=== PATIENT | male | born 1950 | race Caucasian/White ===

== ENCOUNTER → 2017-04-30 | Outpatient (CLI) | payer OTHER ==
--- NOTE | ~2017-04-30 | CT2 ---
[facility] A Service of [facility] RADIOLOGY TEXT RESULTS PATIENT: ROLY QUINTANILLA LOCATION: [facility] : 50 UNIT #: [id number] AGE: [address]: Damián Handley MD SEX: M ORDER DR: [id number] [facility]. [place], [place] [address] [id number] O MR#: [id number] Acc #: [id number] NAME: ROLY QUINTANILLA : 1950 SEX: M STUDY DATE/TIME: 04/30/2017 10:25 UNIT: [facility] ROOM: STUDY DESCRIPTION: CT Abd and Pelv W Cont Attending Physician: Damián Handley M.D. Referring Physician: Damián Handley M.D. Ordering Physician: Damián Handley M.D. Primary Care Physician: Damián Handley M.D. MEDICAL IMAGING REPORT This report is preliminary unless electronic signature is present EXAM CT abdomen and pelvis with contrast INDICATIONS Unexplained weight loss and generalized abdominal pain for the past 3 months. PROCEDURE Contrast-enhanced CT of the abdomen and pelvis COMPARISON None. TECHNIQUE This CT exam was performed with one or more of the following radiation dose reduction techniques: automatic exposure control, adjustment of mA and/or kV according to patient size, and iterative reconstruction. FINDINGS Abdomen with contrast: Included lung bases are predominately clear. Liver spleen adrenal glands and pancreas are unremarkable. Unremarkable gallbladder. Bowel loops are nondilated. Moderate colonic stool burden. Dominant cyst in the right kidney measures 9.8 cm. There are small cysts in the left kidney. Pelvis without contrast: No pelvic mass or fluid. No aggressive appearing bone lesion. IMPRESSION 1. No acute findings in the abdomen or pelvis. 2. Moderate colonic stool burden. [facility] A Service [facility] RADIOLOGY TEXT RESULTS PATIENT: ROLY QUINTANILLA LOCATION: [facility] : 50 UNIT #: [id number] AGE: [address]: Damián Handley MD SEX: M ORDER DR: 3. A 9.8 cm right renal cyst Dictated by... Javi Birch M.D. THIS IS AN ELECTRONICALLY VERIFIED REPORT Javi Birch M.D. at 05/02/2017 7:09 AM AVA/yazan TD: 04/30/2017 22:02 JOB #: [id number] MEDICAL IMAGING REPORT Page 1 of 1 COPY
[2017-04-30 15:25] LABS: POC - CREATININE 0.83 mg/dL (0.64-1.27); POC - GFR >60.0 mL/min (>60)
== END | disposition home or self-care (01) ==
LOC: CCAT 08:25
PROVIDERS: Internal Medicine
DX: R10.9 Unspecified abdominal pain (principal); R63.4 Abnormal weight loss; R74.8 Abnormal levels of other serum enzymes; N28.1 Cyst of kidney, acquired
CPT/HCPCS: 74177; 82565; Q9967